=== PATIENT | female | born 1950 | race Caucasian/White ===

== ENCOUNTER 2022-11-28 05:36 | Day surgery (SDC) | payer MEDICARE ==
[2022-11-27 12:24] VITALS: BMI 27.8
[2022-11-28] MEDS ORDERED: Lidocaine 1% PF 5 ML VIAL ONE (07:41)
[2022-11-28] MEDS ORDERED: PROPOFOL 200 MG/20 ML VIAL ONE (07:41)
== END 2022-11-28 10:05 | disposition home or self-care (01) ==
LOC: SDC 05:36
PROVIDERS: ATTEND Internal Medicine
PROC: 0DB98ZX Excision of Duodenum, Via Natural or Artificial Opening Endoscopic, Diagnostic (ICD-10-PCS; principal; 2022-11-28)
PROC: 0DB78ZX Excision of Stomach, Pylorus, Via Natural or Artificial Opening Endoscopic, Diagnostic (ICD-10-PCS; 2022-11-28)
PROC: 0DBL8ZX Excision of Transverse Colon, Via Natural or Artificial Opening Endoscopic, Diagnostic (ICD-10-PCS; 2022-11-28)
PROC: 0DBE8ZX Excision of Large Intestine, Via Natural or Artificial Opening Endoscopic, Diagnostic (ICD-10-PCS; 2022-11-28)
DX: D12.3 Benign neoplasm of transverse colon (principal); K31.7 Polyp of stomach and duodenum; K44.9 Diaphragmatic hernia without obstruction or gangrene; K57.30 Diverticulosis of large intestine without perforation or abscess without bleeding; K64.8 Other hemorrhoids; K64.4 Residual hemorrhoidal skin tags; R19.7 Diarrhea, unspecified; M19.90 Unspecified osteoarthritis, unspecified site; I50.9 Heart failure, unspecified; I25.10 Atherosclerotic heart disease of native coronary artery without angina pectoris; Z87.891 Personal history of nicotine dependence; Z83.71 Family history of colonic polyps; Z79.02 Long term (current) use of antithrombotics/antiplatelets; Z79.82 Long term (current) use of aspirin; Z79.899 Other long term (current) drug therapy; Z88.6 Allergy status to analgesic agent; Z88.8 Allergy status to other drugs, medicaments and biological substances; Z95.1 Presence of aortocoronary bypass graft; Z95.5 Presence of coronary angioplasty implant and graft; Z95.810 Presence of automatic (implantable) cardiac defibrillator
CPT/HCPCS: 88305; J2704